=== PATIENT | female | born 1940 | race Caucasian/White ===

== ENCOUNTER 2018-12-17 08:41 | Outpatient (CLI) | payer MEDICARE, OTHER ==
[~2018-12-17 08:41] MED LIST: ASPI-650 PO; ASPI81TA50 PO; CHOL100012 PO; DIAZ5TAB4 PO; DOTERRA PO; FURO40TA6 PO; HYDR-3237 PO; IBUP200T49 PO; ONDA4TAB13 PO; POTA99TA14 PO; REGADENOSON 0.4 MG/5 ML SYRINGE ONE; TOLT4CAP12 PO; ZOLP-413 PO; [UNRECOGNIZED DRUG - OTHER] PO
== END 2018-12-17 23:59 | disposition home or self-care (01) ==
LOC: CFH 08:41
PROVIDERS: ATTEND Internal Medicine Cardiovascular Disease
DX: I08.3 Combined rheumatic disorders of mitral, aortic and tricuspid valves (principal); R60.9 Edema, unspecified; R94.31 Abnormal electrocardiogram [ECG] [EKG]
CPT/HCPCS: 78452; 93017; 93306; A9502; J2785

== ENCOUNTER → 2018-12-24 | Outpatient (CLI) | payer MEDICARE, OTHER ==
[~2018-12-24] MED LIST changes: -REGADENOSON 0.4 MG/5 ML SYRINGE ONE
== END | disposition home or self-care (01) ==
LOC: CVU 08:11
PROVIDERS: ATTEND Internal Medicine Cardiovascular Disease
DX: N95.9 Unspecified menopausal and perimenopausal disorder (principal); R60.0 Localized edema; Z82.49 Family history of ischemic heart disease and other diseases of the circulatory system; Z83.3 Family history of diabetes mellitus; Z81.1 Family history of alcohol abuse and dependence
CPT/HCPCS: 93970